=== PATIENT | male | born 1975 | race American Indian/Alaskan Native ===

== ENCOUNTER 2024-08-22 12:59 | Emergency (ER) | payer OTHER, MEDICAID, SELFPAY ==
[2024-08-22 13:06] VITALS: BP 137/77; PULSE 93; RESP 20; TEMP 36.9; O2SAT 100
[2024-08-22 13:12] VITALS: BMI 25.1
--- NOTE | 2024-08-22 13:20 | EDNOTE_ITS ---
ED General RME/HPI General Chief complaint: General Adult/Misc Complain Stated complaint: EVALUATION Time Seen by Provider: 08/22/24 13:16 Arrival date/time: 08/22/24 12:59 CC: Altered mental status HPI patient presents the ER via wel[employer] die in handcuffs, with altered mental status report. Patient is unable to give me his date of date time but is able to identify himself and the place he is at. Patient is no specific pain. Report from the boat officer note from the correction as the patient is altered mental status with a known history of cirrhosis and hepatitis C. Related Data Home Medications ?Medication ?Instructions ?Recorded ?Confirmed amlodipine 5 mg tablet 5 mg PO QDAY 08/05/24 08/05/24 buprenorphine 100 mg/0.5 mL 100 mg subcut QMONTH 08/05/24 08/05/24 solution,exten.rel.subcutaneous syringe (Sublocade) docusate sodium 250 mg capsule 250 mg PO QDAY 08/05/24 08/05/24 (DSS) Previous Rx's ?Medication ?Instructions ?Recorded furosemide 20 mg tablet (Lasix) 20 mg PO QDAY #30 tabs 08/10/24 pantoprazole 40 mg tablet,delayed 40 mg PO QDAY #30 tabs 08/10/24 release Allergies Allergy/AdvReac Type Severity Reaction Status Date / Time codeine Allergy Severe HIVES Verified 12/28/21 10:34 Review of Systems Review of Systems Narrative Review of Systems: GEN: No fever, no chills, no weight loss EYES: No discharge, no visual changes, no pain HEENT: No ear pain, no congestion, no sore throat PULM: No shortness of breath, no cough, no congestion CV: No chest pain, no dyspnea on exertion, no palpitations GI: No nausea, no vomiting, no diarrhea, no pain, no constipation : No frequency, no urgency, no dysuria MUSC/SKEL: No joint pain, no back pain SKIN: No rash PSYCH: No hallucinations, no depression HEME/LYMPH: No easy bleeding or bruising tendencies NEURO: No weakness, no headache Past Medical History Past Medical History NEUROLOGIC: Positive Neurological Disorders; Negative Seizures CARDIAC: Positive Cardiac Disorders and Hypertension; Negative Congestive Heart Failure RESPIRATORY: Negative Chronic Obstructive Pulmonary Disease (COPD) or Asthma GASTROINTESTINAL: Positive Gastrointestinal Disorders, Hepatitis (C) and Cirrhosis GENITOURINARY: Negative Genitourinary Disorders or Renal Disease MUSCULOSKELETAL: Negative Musculoskeletal Disorders ENDOCRINE: Negative Diabetes Mellitus Type 1 or Diabetes Mellitus Type 2 HEMATOLOGIC: Negative Blood Disorders or Sickle Cell Disease PSYCHO/SOCIAL: Positive Psychiatric Problems and Recreational Drug Use OTHER HISTORY: Negative Autoimmune Disease, Blood Transfusions, Blood Transfusion Reaction, Anesthesia Reactions, MRSA, VRSA, Vancomycin-Resistant Enterococci or Cancer Surgical History SURGICAL: Positive Eye Surgery Social History SMOKING STATUS: Never smoker SECOND HAND EXPOSURE: Yes SUBSTANCE USE: heroin ED Exam Narrative Physical exam: [General: Not in any acute distress Head normocephalic HEENT: Eyes: Mild icteric sclera's pupils are PERRLA EOMs all other subsystems of HEENT are within acceptable limits Neck is supple nontender Chest equal chest rise nontender to palpation Respiratory: Clear to auscultation no wheezes crackles or rubs CV: Rate rhythm is regular no murmurs rubs or clicks Abdomen is soft nontender no masses positive bowel sounds all 4 quadrants Back: No CVA tenderness no spinous process tenderness from cervical spine thoracic and lumbar spine Skin: Intact no petechiae rash induration ulceration or crepitus Extremities: Moving all extremity against resistance cap refill less than 2 seconds neurosensory intact Neuro: Awake alert oriented x 2, person and place, Glascow coma 15 no focal deficits] Course Course Course Narrative: Patient's case laboratory results and clinical presentation discussed with Dr. Dsouza who agrees with this disposition. Quality Measures none Orders Category Date Time Status CT head/brain wo con Stat Exams 08/22/24 14:11 Completed Alcohol, Blood Medical Stat Lab 08/22/24 13:34 Completed Ammonia Stat Lab 08/22/24 13:34 Completed B-Type Natriuretic Peptide Stat Lab 08/22/24 13:34 Completed CBC Stat Lab 08/22/24 13:34 Completed Comprehensive Metabolic Panel Stat Lab 08/22/24 13:34 Completed Drug Screen,Urine Stat Lab 08/22/24 13:42 Completed Lipase Stat Lab 08/22/24 13:34 Completed Magnesium Stat Lab 08/22/24 13:34 Completed Partial Thromboplastin Time Stat Lab 08/22/24 13:34 Completed Prothrombin Time with INR Stat Lab 08/22/24 13:34 Completed Urinalysis Stat Lab 08/22/24 13:42 Completed Vital Signs Vital signs: Vital Signs Temperature 98.4 F 08/22/24 13:06 Pulse Rate 93 08/22/24 13:06 Respiratory Rate 20 08/22/24 13:06 Blood Pressure 137/77 H 08/22/24 13:06 Pulse Oximetry (%) 100 08/22/24 13:06 Oxygen Delivery Method Room Air 08/22/24 13:06 [facility] Patient data External records reviewed:: [facility] previous records Clinical information provided by:: patient and law enforcement Social determinants that could affect healthcare access:: none Patient has the following chronic illnesses:: Cirrhosis hep C esophageal varices How is presenting disease/condition affected by chronic disease/condition?: e xacerbated by Evaluation data The following diagnostics were reviewed and interpreted by me:: lab results Lab and/or radiology exams considered but not ordered:: CBC shows no leukocytosis there is an improved anemia, and thrombocytopenia Coags show an INR of 1.2 CMP shows no acute electrolyte imbalances renal impairment mild transaminitis with normal T. bili Troponin is negative CT of the head is negative Interpretation Summary: No acute finding I suspect the patient will need lactulose for the next week and then needs to be rechecked for his ammonia level. Also patient needs to be rechecked for if there is a decrease in his hematocrit. Medications Medications considered but not ordered:: None Medication administrations:: None Consultations Consultation(s) initiated? (list below): No Diagnosis Differential Diagnosis ED Complaint MDM: Elevated ammonia level, cerebral mass, GI bleed Most likely diagnosis given after review of the tests above:: Cirrhosis altered mental status Admission Indicated Admission indicated?: not indicated Explain why admission is indicated or not indicated:: Stable for outpatient follow-up Admission Request Was there a request for admission?: No Disposition Plan Disposition Plan: Discharge Discharge Attestation Discharge Attestation: The patient and all family members were given an opportunity to ask questions and understood the discharge instructions. Discharge instructions specifically effects, indications for sooner follow up or return to the emergency department, and the expected course of current diagnosis. Patient condition: Stable Medical Decision Making Differential Diagnosis Differential Diagnosis: Elevated ammonia level, cerebral mass, GI bleed Lab Data 08/22/24 13:34 08/22/24 13:34 Labs: Lab Results 08/22/24 08/22/24 Range/Units 13:34 13:42 WBC 5.3 (3.8-10.6) Thou/mm3 RBC 2.84 L (4.50-5.90) Miln/mm3 Hgb 8.4 L (13.5-16.0) g/dL Hct 25.3 L (41.0-53.0) % MCV 89 (80-100) fL MCH 29.6 (25.0-35.0) pg MCHC 33.2 (31.0-37.0) g/dl RDW Std Deviation 53.1 H (35.1-43.9) fL Plt Count 86 L (140-440) Thou/mm3 Neut % (Auto) 66 (37-80) % Lymph % (Auto) 20 (10-50) % [place] % (Auto) 13 H (0-12) % Eos % (Auto) 0 (0-10) % Baso % (Auto) 1 (0-2.5) % Neut # (Auto) 3.5 (1.8-7.7) Thou/mm3 Lymph # (Auto) 1.1 (1.0-4.8) Thou/mm3 [place] # (Auto) 0.7 (0.0-0.8) Thou/mm3 Eos # (Auto) 0.0 (0.0-0.5) Thou/mm3 Baso # (Auto) 0.0 (0.0-0.2) Thou/mm3 Immature Gran # (Auto) 0.01 H (0.00-0.00) Thou/mm3 Absolute Nucleated RBC 0.00 (0.00-0.00) Thou/mm3 Immature Gran % 0 (0-0) % Nucleated RBC % 0 (0) /100 WBC PT 13.3 H (9.0-12.2) Seconds INR 1.2 (0.9-1.3) APTT 29.3 (22.0-36.0) Seconds Sodium 139 (136-145) mMol/L Potassium 3.5 (3.4-5.1) mMol/L Chloride 107 (98-107) mMol/L Carbon Dioxide 23.5 (20.0-31.0) mMol/L Anion Gap 9 (7-16) BUN 16 (9-23) mg/dL Creatinine 0.8 (0.6-1.3) mg/dL Estim Creat Clear Calc 105.7 (>60) mL/min eGFR > 60 (60 - ) See Note BUN/Creatinine Ratio 20 (12-20) Ratio Glucose 102 (74-106) mg/dL Calculated Osmolality 278 (275-295) Calcium 9.1 (8.3-10.6) mg/dL Corrected Calcium 9.3 (8.5-10.1) mg/dL Magnesium 2.2 (1.6-2.6) mg/dL Total Bilirubin 1.2 (0.3-1.2) mg/dL AST 124 H (0-34) U/L ALT 100 H (10-49) U/L Alkaline Phosphatase 119 H (46-116) U/L Ammonia 23 (11-32) uMol/L B-Natriuretic Peptide 38 (0-100) pg/mL Total Protein 7.6 (5.7-8.2) gm/dL Albumin 3.7 (3.5-5.0) gm/dL Globulin 3.9 H (2.3-3.5) gm/dL Albumin/Globulin Ratio 0.9 L (1.2-2.2) Lipase 28 (12-53) U/L Ur Collection Type Clean Catch Urine Color Colorless A (Lt Yel-Yel) Urine Clarity Clear (Clear/Hazy) Urine pH 7.5 H (5.0-7.0) Ur Specific Dorothy 1.012 (1.001-1.035) Urine Protein Negative (Neg - Trace) Urine Glucose (UA) Negative (Negative) Urine Ketones Negative (Negative) Urine Blood Negative (Negative) Urine Nitrite Negative (Negative) Urine Bilirubin Negative (Negative) Urine Urobilinogen (Auto) Negative (0.0-1.0) mg/dL Ur Leukocyte Esterase Negative (Negative) Urine RBC 1 (0-3) /hpf Urine WBC < 1 (0-5) /hpf Ur Squamous Epith Cells 0 (0-5) /hpf Urine Bacteria None (None) Urine Opiates Screen Negative (Negative) Urine Fentanyl Screen Negative (Negative) Ur Barbiturates Screen Negative (Negative) U Amphetamin/Meth Scrn Negative (Negative) U Benzodiazepines Scrn Negative (Negative) U Cocaine Metab Screen Negative (Negative) U Marijuana (THC) Screen Negative (Negative) Ethyl Alcohol < 3.0 (0-10.0) mg/dL Discharge Plan Plan Patient Disposition: Detention/Court/Law Patient condition on transfer: Stable Prescriptions/Referrals Prescriptions/Med Rec: No Action amlodipine 5 mg Tablet 5 mg PO QDAY docusate sodium [DSS] 250 mg Capsule 250 mg PO QDAY Sublocade 100 mg/0.5 mL Solution, Extended Rel Syringe 100 mg SUBCUT QMONTH pantoprazole 40 mg tablet,delayed release (DR/EC) 40 mg PO QDAY Qty: 30 0RF furosemide [Lasix] 20 mg tablet 20 mg PO QDAY Qty: 30 0RF Referrals: No Primary/Family,Physician [Primary Care Provider] - In 1 week Problem List Clinical Impression: Medical clearance for incarceration, Cirrhosis Patient/Caregiver Discharge Instructions Print Language: Mongolian PA/COUNTER WAITRESS/WAITER Supervising Physician PA/COUNTER WAITRESS/WAITER Supervising Physician: Chung Jules ENP
[2024-08-22 13:43] LABS: Basophils % (Auto) 1 % (0-2.5); Eosinophils % (Auto) 0 % (0-10); Hematocrit 25.3 % (41.0-53.0); Immature Granulocytes % (Auto) 0 % (0-0); Immature Granulocytes Auto 0.01 Thou/mm3 (0.00-0.00); Lymphocytes # (Auto) 1.1 Thou/mm3 (1.0-4.8); Lymphocytes % (Auto) 20 % (10-50); Mean Corpuscular HGB Conc 33.2 g/dl (31.0-37.0); Mean Corpuscular Hemoglobin 29.6 pg (25.0-35.0); Mean Corpuscular Volume 89 fL (80-100); Monocytes # (Auto) 0.7 Thou/mm3 (0.0-0.8); Monocytes % (Auto) 13 % (0-12); Neutrophils # (Auto) 3.5 Thou/mm3 (1.8-7.7); Neutrophils % (Auto) 66 % (37-80); Nucleated Red Blood Cell % 0 /100 WBC (0); Platelet Count 86 Thou/mm3 (140-440); RDW Standard Deviation 53.1 fL (35.1-43.9); Red Blood Count 2.84 Miln/mm3 (4.50-5.90); White Blood Count 5.3 Thou/mm3 (3.8-10.6)
[2024-08-22 13:45] LABS: Hemoglobin 8.4 g/dL (13.5-16.0)
[2024-08-22 13:51] LABS: Collection Type, Urine Clean Catch; Squamous Epithelial Cell,Urine 0 /hpf (0-5)
[2024-08-22 13:57] LABS: Bilirubin,Urine Negative (Negative); Blood,Urine Negative (Negative); Clarity,Urine Clear (Clear/Hazy); Color,Urine Colorless (Lt Yel-Yel); Glucose, Urine Negative (Negative); Ketones,Urine Negative (Negative); Leukocyte Esterase,Urine Negative (Negative); Nitrite,Urine Negative (Negative); PH,Urine 7.5 (5.0-7.0); Protein,Urine Negative (Neg - Trace); RBC,Urine 1 /hpf (0-3); Specific Gravity,Urine 1.012 (1.001-1.035); Urobilinogen,Urine Negative mg/dL (0.0-1.0); WBC,Urine < 1 /hpf (0-5)
[2024-08-22 13:58] LABS: INR 1.2 (0.9-1.3); Partial Thromboplastin Time 29.3 Seconds (22.0-36.0); Prothrombin Time 13.3 Seconds (9.0-12.2)
[2024-08-22 14:06] LABS: Ammonia 23 uMol/L (11-32)
[2024-08-22 14:08] LABS: Alanine Aminotransferase 100 U/L (10-49); Albumin, Serum 3.7 gm/dL (3.5-5.0); Albumin/Globulin Ratio 0.9 (1.2-2.2); Alkaline Phosphatase 119 U/L (46-116); Anion Gap 9 (7-16); Aspartate Amino Transferase 124 U/L (0-34); BUN/Creatinine Ratio 20 Ratio (12-20); Bilirubin,Total 1.2 mg/dL (0.3-1.2); Blood Urea Nitrogen 16 mg/dL (9-23); Calcium 9.1 mg/dL (8.3-10.6); Calcium (Corrected) 9.3 mg/dL (8.5-10.1); Carbon Dioxide 23.5 mMol/L (20.0-31.0); Chloride 107 mMol/L (98-107); Creatinine (Component) 0.8 mg/dL (0.6-1.3); Estimated Creatinine Clearance 105.7 mL/min (>60); Globulin 3.9 gm/dL (2.3-3.5); Glucose 102 mg/dL (74-106); Lipase 28 U/L (12-53); Magnesium 2.2 mg/dL (1.6-2.6); Osmolality,Calculated 278 (275-295); Potassium 3.5 mMol/L (3.4-5.1); Sodium 139 mMol/L (136-145); Total Protein 7.6 gm/dL (5.7-8.2); eGFR > 60 See Note
[2024-08-22 14:09] VITALS: BP 114/64; PULSE 74; RESP 12; TEMP 36.8; O2SAT 100
[2024-08-22 14:09] LABS: Amphetamine/Methamp Scrn,U Negative (Negative); Barbiturate Screen,Urine Negative (Negative); Benzodiazepines Screen,Urine Negative (Negative); Benzoylecgonine Screen, Ur Negative (Negative); Fentanyl Screen,Urine Negative (Negative); Opiate Screen,Urine Negative (Negative); THC Screen,Urine Negative (Negative)
--- NOTE | 2024-08-22 14:11 | XR_ITS ---
Examination: CT brain head without contrast. 2-D sagittal coronal reconstructions Date and time of exam:August 22, 2024 1539 hours Comparison October 14, 2022 INDICATIONS: Onset altered mental status today CTDI: vol (mGy):50.7 DLP: (mGycm):1143 Technique: Multiple CT axial sections of the brain have been obtained, 5 mm slice thickness. Contrast has not been administered. 2-D sagittal, coronal reconstructions have been obtained Low dose protocols were performed. One or more of the following dose reduction techniques were used; automated exposure control, adjustment of the mA and/or KV according to patient size, use of iterative reconstruction technique. Findings: No significant ventricular enlargement. Intra-axial or extra-axial hemorrhage density is not seen. No mass effect or midline shift Basal cisterns are not remarkable. Fourth ventricle is midline. Cranial vault intact. Impression: Negative for acute hemorrhage, mass effect or midline shift Advise clinical correlation follow-up accordingly
[2024-08-22 14:12] LABS: B-Type Natriuretic Peptide 38 pg/mL (0-100)
[2024-08-22 14:34] LABS: Alcohol, Blood Medical < 3.0 mg/dL (0-10.0)
[2024-08-22 16:27] VITALS: BP 123/78; PULSE 86; RESP 18; TEMP 36.9; O2SAT 100
== END 2024-08-22 18:08 ==
PROVIDERS: Registered Nurse General Practice; Emergency Provider Emergency Medicine
DX: Z02.89 Encounter for other administrative examinations (principal); K74.60 Unspecified cirrhosis of liver; R41.82 Altered mental status, unspecified
CPT/HCPCS: 36415; 70450; 80053; 80307; 80320; 81001; 82140; 83690; 83735; 83880; 85025; 85610; 85730; 99284; G0480